=== PATIENT | male | born 1995 | race Two or more races ===

== ENCOUNTER 2018-09-04 13:06 | Emergency (ER) | payer SELFPAY ==
[~2018-09-04] VITALS: Ht 162.6 cm; Wt 84.4 kg
[~2018-09-04 13:06] MED LIST: ATARAX25 MG ORAL; BACTRIM-DS1 EA ORAL; BENADRYL25 MG ORAL; CEPHALEXIN500 MG ORAL; CEPHALEXIN500 MG PO; KEFLEX500 MG ORAL; NKM; NORCO 5-325 TA1 EACH ORAL; PREDNISONE20 MG ORAL
[2018-09-04 13:12] VITALS: BP 122/67
--- NOTE | 2018-09-04 14:36 | Emergency Room Report ---
History of Present Illness General Chief Complaint: Pain Source: Patient Present Illness HPI 23-year-old male presents to the emergency department complaining of 8 out of 10 in severity localized pain to the lateral aspect of the left great toe progressive 4 days. Patient reports multiple history of ingrown toenail which required surgical intervention by retail sales consultant. Patient states that he has erythema, redness and had some drainage in that area. Patient denies fevers or chills. Patient denies trauma to the toe. Palpation or tight shoes exacerbates his pain and opening toe shoes helps to alleviate his pain patient states he's been trying warm water soaks with alcohol. Allergies: Coded Allergies: No Known Allergies (Unverified , 06/29/12) Patient History Past Medical History: see triage record Past Surgical History: none Pertinent Family History: none Immunizations: UTD Reviewed Nursing Documentation: PMH: Agreed; PSxH: Agreed Nursing Documentation-PMH Past Medical History: No Stated History Review of Systems All Other Systems: negative except mentioned in HPI Physical Exam Vital Signs Date Time Temp Pulse Resp B/P (MAP) Pulse Ox O2 Delivery O2 Flow Rate FiO2 09/04/18 13:12 98.4 75 18 122/67 96 Room Air Sp02 EP Interpretation: reviewed, normal General Appearance: no apparent distress, alert, GCS 15, non-toxic Head: normocephalic, atraumatic Eyes: bilateral eye normal inspection, bilateral eye PERRL ENT: hearing grossly normal, normal voice Neck: full range of motion Respiratory: lungs clear, normal breath sounds, speaking full sentences Cardiovascular #1: regular rate, rhythm, normal capillary refill Musculoskeletal: back normal, gait/station normal, normal range of motion, inflammation - left great toe lateral cuticle line, swelling - left great toe lateral cuticle line, tender - left great toe lateral cuticle line Neurologic: alert, oriented x3, responsive, motor strength/tone normal, sensory intact, speech normal, grossly normal Skin: no rash, warm/dry, well hydrated, other - erythema, inflammation and warmthto the left great toe lateral cuticle line Procedures Incision and Drainage Incision and Drainage : Consent: Verbal Site: left great toe lateral cuticle line Blade Size: 15 I & D Procedure: betadine prep, sterile drapes applied, sterile dressing applied Wound Location: lower extremity - left great toe lateral cuticle line Wound's Depth, Shape: superficial Wound Length (cm): 1 Wound Explored: contaminated - purulent drainage expressed Splint Applied?: No Sling Applied?: No Patient Tolerated: Well Complications: None Progress the cuticle line of the left great toe was gently lifted using a no. 15 scalpel without anesthesia. Medical Decision Making PA Attestation Dr. Dietrich is my supervising physician whom pt. management has been discussed with. Diagnostic Impression: Primary Impression: Paronychia of great toe of left foot Additional Impression: Ingrown toenail of left foot with infection ER Course 23-year-old male presents to the emergency department complaining of 8 out of 10 in severity localized pain to the lateral aspect of the left great toe progressive 4 days. Patient reports multiple history of ingrown toenail which required surgical intervention by retail sales consultant. Patient states that he has erythema, redness and had some drainage in that area. Patient denies fevers or chills. Patient denies trauma to the toe. Palpation or tight shoes exacerbates his pain and opening toe shoes helps to alleviate his pain patient states he's been trying warm water soaks with alcohol. Ddx considered but are not limited to cellulitis, paronychia, eponychia, ingrown toe nail, fracture, d/L, gout Vital signs: are WNL, pt. is afebrile H&PE are most consistent with Left great toenail paronychia due to ingrown toenail. ORDERS: none required at this time, the diagnosis is clinical ED INTERVENTIONS: - I & D --see procedure note - sterile band-aid was then applied afterward. - will d/c pt. with PO abx. DISCHARGE: At this time pt. is stable for d/c to home. Will provide printed patient care instructions, and any necessary prescriptions. Care plan and follow up instructions have been discussed with the patient prior to discharge. Last Vital Signs Date Time Temp Pulse Resp B/P (MAP) Pulse Ox O2 Delivery O2 Flow Rate FiO2 09/04/18 13:12 98.4 75 18 122/67 96 Room Air Disposition: HOME, SELF-CARE Condition: Stable Scripts Ibuprofen* (MOTRIN*) 600 Mg Tablet 600 MG ORAL THREE TIMES A DAY, #30 TAB 0 Refills Prov: Yari Armando 09/04/18 Acetaminophen With Codeine (T#3) (TYLENOL #3 TAB*) Y Tab 1 TAB ORAL Q6HR PRN for For Pain, #12 TAB Prov: Yari Armando 09/04/18 Mupirocin* (MUPIROCIN*) 22 Gm Oint...g. 1 APPLIC TOPIC THREE TIMES A DAY, #22 GM Prov: Yari Armando 09/04/18 Clindamycin Hcl (CLINDAMYCIN HCL) 300 Mg Capsule 300 MG ORAL FOUR TIMES A DAY for 7 Days, #28 CAP Prov: Yari Armando 09/04/18 Referrals: NOT CHOSEN IPA/MD,REFERRING (PCP) Departure Forms: Return to Work Return to Work Date: Sep 07, 2018 Work Restrictions: None Return to Full Activity: Sep 07, 2018 Patient Instructions: Marcin Meza, Premanychichris, [id number] Additional Instructions: Take medications as directed. Follow up with a CUT FILE CLERK in 3-5 days, even if your symptoms have resolved. --Please review list of primary care clinics, if you do not already have a primary care provider Return sooner to ED if new symptoms occur, or current symptoms become worse. Do not drink alcohol, drive, or operate heavy machinery while taking Tylenol # 3 as this may cause drowsiness. - Please note that this Emergency Department Report was dictated using [employer] mangle tender technology software, occasionally this can lead to erroneous entry secondary to interpretation by the dictation equipment. Yari Armando Sep 04, 2018 14:36
[2018-09-04] MEDS ORDERED: CLINDAMYCIN HC300 MG ORAL (14:37)
[2018-09-04] MEDS ORDERED: MUPIROCIN22 GM TOPIC (14:37)
[2018-09-04] MEDS ORDERED: ACETAMINOPHEN-1 EAC1 ORAL (14:38)
[2018-09-04] MEDS ORDERED: IBUPROFEN600 MG ORAL (14:38)
[2018-09-04 15:00] VITALS: BP 112/66
--- NOTE | 2018-09-04 15:00 | NUR ---
ED Nurse Note:pt with toenail edge removed by and cleansed toe with dressing applied and meds given without ADR. pt amb steady gait out of ed and aware of f/u with solderer torch. free and low cost clinic list given as pt without insureance or pmd. amb steady gait out of ed.
== END 2018-09-04 15:00 | disposition home or self-care (01) ==
LOC: EMR 13:44
DX: L03.032 Cellulitis of left toe (principal); L60.0 Ingrowing nail
CPT/HCPCS: 99283